=== PATIENT | male | born 1965 | race Caucasian/White ===

== ENCOUNTER 2017-11-16 11:14 | Emergency (ER) | payer OTHER ==
--- NOTE | 2017-11-16 12:46 | UC ---
Lower Extremity/Ankle HPI - HPI Summary HPI Summary: Patient is an otherwise healthy 52-year-old male presenting to the with chief complaint of right lateral foot pain since yesterday. Denies any known injury. Denies any stress to the area. Has not been walking more frequently. Endorses pain with ambulation, relieved with rest. There is no erythema to the area or warmth. Has never been diagnosed with gout. there are no open areas which would suggest infection. - History of Current Complaint Chief Complaint: UCLowerExtremity Stated Complaint: FOOT PAIN Time Seen by Provider: 11/16/17 12:01 Hx Obtained From: Patient Onset/Duration: Sudden Onset Severity Initially: Moderate Severity Currently: Moderate Pain Intensity: 5 Pain Scale Used: 0-10 Numeric Aggravating Factor(s): Standing, Ambulation Alleviating Factor(s): Rest Able to Bear Weight: Yes - Risk Factors Gout Risk Factors: Negative DVT Risk Factors: Negative Septic Arthritis Risk Factor: Negative - Allergies/Home Medications Allergies/Adverse Reactions: Allergies Allergy/AdvReac Type Severity Reaction Status Date / Time meperidine [From Demerol] Allergy Rash Verified 11/16/17 11:36 Home Medications: Home Medications NK [No Home Medications Reported] 11/16/17 [History Confirmed 11/16/17] PMH/Surg Hx/FS Hx/Imm Hx Previously Healthy: Yes - Surgical History Surgical History: None - Family History Known Family History: Positive: None - Social History Occupation: Employed Full-time Lives: With Family Alcohol Use: Occasionally Substance Use Type: None Smoking Status (MU): Never Smoked Tobacco Type: Smokeless Tobacco Review of Systems Constitutional: Negative Skin: Negative Respiratory: Negative Cardiovascular: Negative Motor: Negative Neurovascular: Negative Musculoskeletal: Arthralgia Neurological: Negative Is Patient Immunocompromised?: No All Other Systems Reviewed And Are Negative: Yes Physical Exam Triage Information Reviewed: Yes Appearance: Well-Appearing, No Pain Distress, Well-Nourished Vital Signs: Initial Vital Signs Temp 98.3 F 11/16/17 11:37 Pulse 100 11/16/17 11:37 Resp 18 11/16/17 11:37 BP 150/91 11/16/17 11:37 Pulse Ox 99 11/16/17 11:37 Vital Signs Reviewed: Yes Eye Exam: Normal Eyes: Positive: Conjunctiva Clear - any known why he was doing unique grossly Neck exam: Normal Neck: Positive: Supple, No Lymphadenopathy Respiratory Exam: Normal Respiratory: Positive: Chest non-tender, Lungs clear Cardiovascular Exam: Normal Cardiovascular: Positive: RRR Musculoskeletal Exam: Normal Musculoskeletal: Positive: Strength Intact Neurological Exam: Normal Psychological: Positive: Normal Response To Family Skin Exam: Normal Lower Extremity Course/Dx - Course Course Of Treatment: X-ray obtained which shows a radiopaque foreign body to the toe. Patient is made aware of this and he is aware that a small wire got into the toe approximately one week ago. There is no erythema to the area. - Differential Dx/Diagnosis Provider Diagnoses: Lateral Foot Pain Discharge - Discharge Plan Condition: Stable Disposition: HOME Referrals: Mike Rodriguez MD [Primary Care Provider] - Paul Mckinnon MD [Medical Doctor] - Additional Instructions: Please see the orthopedic physician for any worsening symptoms Obtain insoles as soon as possible Ibuprofen 600mg three times daily
--- NOTE | 2017-11-16 12:49 | RAD ---
Indication: RIGHT foot pain for one day. Soft tissue swelling. Comparison: No relevant prior exams available on the [facility] PACS for comparison. Technique: AP, lateral, and oblique views RIGHT foot. Report: Negative for fracture or malalignment. Normal variant os peroneum accessory ossicle. Within the superficial soft tissues medial to the IP joint of the first toe there is a 4 mm length wire morphology radiopaque foreign body. Associated surrounding soft tissue swelling. The soft tissue contours are otherwise unremarkable. Negative for subcutaneous emphysema. Ewing images saved on the [facility] PACS. IMPRESSION: Small wire shaped radiopaque foreign body with surrounding soft tissue swelling within the soft tissues medial to the IP joint of the great toe. Correlate with injury history.
== END 2017-11-16 13:11 | disposition home or self-care (01) ==
LOC: UCEAST 11:14
DX: M79.671 Pain in right foot (principal); S91.141A Puncture wound with foreign body of right great toe without damage to nail, initial encounter; X58.XXXA Exposure to other specified factors, initial encounter; Y92.9 Unspecified place or not applicable; Z88.5 Allergy status to narcotic agent
CPT/HCPCS: 99211; G0463

== ENCOUNTER 2019-01-24 09:44 | Emergency (ER) | payer OTHER ==
[2019-01-24] MEDS ORDERED: Fluorescein Sodium TOPICAL* 1 MG TEST STRIP OPHTHALMIC ONE (10:34)
[2019-01-24] MEDS ORDERED: Tetracaine 0.5% OPTH.SOL 4 ML* 1 DROP BTL RIGHT EYE ONE (10:34)
--- NOTE | 2019-01-24 10:37 | UC ---
Eye Complaint HPI - HPI Summary HPI Summary: 53-year-old male 53-year-old male comes in with a chief complaint of right eye irritation. Yesterday at work he was wearing safety glasses and he was grinding and something got up underneath the safety glasses into his right eye. It was bothering him right away and overnight it was quite itchy and worse when he points his eyes. He also had a headache and that area. In the last couple hours symptoms have improved some. No complaint of difficulty with vision. Patient uses glasses does not use contacts. He did have some drainage out of the eye this morning. - History of Current Complaint Chief Complaint: UCEye Stated Complaint: FB IN EYE Time Seen by Provider: 01/24/19 10:30 Pain Intensity: 2 - Allergies/Home Medications Allergies/Adverse Reactions: Allergies Allergy/AdvReac Type Severity Reaction Status Date / Time meperidine [From Demerol] Allergy Rash Verified 01/24/19 10:02 PMH/Surg Hx/FS Hx/Imm Hx Previously Healthy: Yes - Surgical History Surgical History: Yes Surgery Procedure, Year, and Place: right shoulder rotator cuff aight knee - Family History Known Family History: Positive: None - Social History Alcohol Use: Occasionally Substance Use Type: None Smoking Status (MU): Never Smoked Tobacco Type: Smokeless Tobacco Review of Systems All Other Systems Reviewed And Are Negative: Yes Constitutional: Positive: Negative Skin: Positive: Negative Eyes: Positive: Drainage, Eye Redness, Other - SEE HPI ENT: Positive: Negative Respiratory: Positive: Negative Cardiovascular: Positive: Negative Gastrointestinal: Positive: Negative Motor: Positive: Negative Neurovascular: Positive: Decreased Sensation Musculoskeletal: Positive: Negative Neurological: Positive: Headache Psychological: Positive: Negative Is Patient Immunocompromised?: No Physical Exam Triage Information Reviewed: Yes Appearance: Well-Appearing, No Pain Distress, Well-Nourished Vital Signs: Initial Vital Signs Temp 98.3 F 01/24/19 10:00 Pulse 86 01/24/19 10:00 Resp 16 01/24/19 10:00 BP 137/93 01/24/19 10:00 Pulse Ox 99 01/24/19 10:00 Eyes: Positive: Conjunctiva Inflamed - MEDIAL TO IRIS; 5MM RAISED AREA OF CONJUNTIVA. NO FLOURCEIN UPTAKE. NO FB., Discharge - CLEAR, Other: - TETRACAINE/ FLOURCEIN EXAM BY MYSELF. PERRLA/EOMI, GLOBE INTACT Neck: Positive: Supple Respiratory: Positive: No respiratory distress Musculoskeletal Exam: Normal Musculoskeletal: Positive: Strength Intact, ROM Intact Neurological: Positive: Alert, Muscle Tone Normal Psychological Exam: Normal Psychological: Positive: Age Appropriate Behavior Eye Complaint Course/Dx - Differential Dx/Diagnosis Provider Diagnosis: Corneal inflammation, right Discharge - Sign-Out/Discharge Documenting (check all that apply): Patient Departure All imaging exams completed and their final reports reviewed: No Studies - Discharge Plan Condition: Stable Disposition: HOME Prescriptions: Tobramycin 0.3% OPHTH.BRIDGET* 1 drop RIGHT EYE Q4H #1 btl Patient Education Materials: Eye Foreign Body (ED), Conjunctivitis (ED) Referrals: Mike Rodriguez MD [Primary Care Provider] - [facility] [Provider Group] Additional Instructions: FOLLOW UP WITH OPHTHALMOLOGY IF NOT COMPLETELY IMPROVED. GET RECHECKED SOONER IF YOUR CONDITION WORSENS OR ANY QUESTIONS OR CONCERNS. - Billing Disposition and Condition Condition: STABLE Disposition: Home
== END 2019-01-24 11:10 | disposition home or self-care (01) ==
LOC: UCEAST 09:44
DX: H16.9 Unspecified keratitis (principal)
CPT/HCPCS: 99212; A9270-GY; G0463